=== PATIENT | female | born 1955 | race Caucasian/White ===

== ENCOUNTER 2022-06-11 15:27 | Outpatient (CLI) | payer MEDICARE, MEDICAID ==
[2022-06-11 16:30] LABS: APTT 28 SECONDS (22-32)
== END 2022-06-11 23:59 | disposition home or self-care (01) ==
LOC: RAD 15:27
PROVIDERS: ATTEND Internal Medicine Cardiovascular Disease
DX: R06.02 Shortness of breath (principal); R07.9 Chest pain, unspecified
CPT/HCPCS: 36415; 71046; 85610; 85730

== ENCOUNTER 2022-06-16 06:37 | Day surgery (SDC) | payer MEDICARE, MEDICAID ==
[~2022-06-16] VITALS: Ht 172.7 cm; Wt 71.3 kg
[2022-06-16] VITALS (13 sets, daily range): BP systolic 104–134; BP diastolic 56–86
[2022-06-16] MEDS ORDERED: nitroGLYCERIN 0.4mg SUBLingual tab SL PRN (06:55)
[2022-06-16] MEDS ORDERED: LORA-269 (07:02)
[2022-06-16] MEDS ORDERED: ACYC-126 PO (07:02)
[2022-06-16] MEDS ORDERED: LEVO25TA7 PO (07:02)
[2022-06-16] MEDS ORDERED: NITR0.3T10 (07:07)
[2022-06-16] MEDS ORDERED: OMEP20CA16 PO (07:07)
[2022-06-16] MEDS ORDERED: DIVA500T40 PO (07:07)
[2022-06-16] MEDS ORDERED: ROSU20TA31 PO (07:07)
[2022-06-16] MEDS ORDERED: CYCL1DRO2 EACHEYE (07:07)
[2022-06-16] MEDS ORDERED: DICY10CA88 PO (07:07)
[2022-06-16] MEDS ORDERED: PROP1DRO7 OP (07:08)
[2022-06-16] MEDS ORDERED: ACET-2971 PO (07:09)
[2022-06-16] MEDS ORDERED: ACET-1025 PO (07:12)
[2022-06-16] MEDS ORDERED: [UNRECOGNIZED DRUG - OTHER] (07:14)
[2022-06-16] MEDS: diphenhydrAMINE 25mg capsule PO PRN (07:19)
[2022-06-16] MEDS: LORazepam 0.5 MG tablet PO PRN (07:19)
[2022-06-16] MEDS: normal saline 1,000 ML IV SCH (07:19)
[2022-06-16] MEDS ORDERED: iohexol 350MG/ML 100ml bottle IV ONE (09:47)
[2022-06-16] MEDS ORDERED: midazolam 1 mg/ML 2ml injection ONE ×2 (09:47→10:52)
[2022-06-16] MEDS ORDERED: LIDOcaine 1% 30ml preserv. free vial ONE (09:47)
[2022-06-16] MEDS ORDERED: fentaNYL/PF 50MCG/1 ML 2ML syringe ONE ×2 (09:47→10:52)
[2022-06-16] MEDS ORDERED: iohexol 350 MG/ML 50ML vial IV ONE (09:47)
[2022-06-16] MEDS ORDERED: morphine 2 MG/ML inj. syringe ONE (10:35)
[2022-06-16] MEDS ORDERED: OXAZEpam 15mg capsule PO PRN (11:25)
[2022-06-16] MEDS ORDERED: proCHLORperazine 10 MG/2 ml inj IV PRN (11:25)
[2022-06-16] MEDS ORDERED: HYDROcodone/acetaminophen 10/325mg tab PO PRN (11:30)
[2022-06-16] MEDS ORDERED: HYDROcodone/acetaminophen 5mg/325mg tablet PO PRN (11:30)
[2022-06-16] MEDS: HYDROmorphone 1 mg/ml syringe IV ONE (11:48)
[2022-06-16] MEDS: ondansetron/PF 4mg/2ml inj IV PRN (17:21)
--- NOTE | 2022-06-16 17:28 | NUR ---
Pt became nauseated after sitting up that continued. Given zofran via IV
== END 2022-06-16 18:00 | disposition home or self-care (01) ==
LOC: SSTAY O 06:37 → EDUNIT# 09:30 → SSTAY O 18:00
PROVIDERS: ATTEND Internal Medicine Cardiovascular Disease
DX: R94.39 Abnormal result of other cardiovascular function study (principal); I25.10 Atherosclerotic heart disease of native coronary artery without angina pectoris; G89.4 Chronic pain syndrome; F43.10 Post-traumatic stress disorder, unspecified; F32.A Depression, unspecified; K21.9 Gastro-esophageal reflux disease without esophagitis; Z79.899 Other long term (current) drug therapy
CPT/HCPCS: 82948; 93458; 99152; 99153; C1760; J1170; J1644; J2250; J2270; J2405; J3010; J3490; J7030; Q0163; Q9967; A6258; C1769